=== PATIENT | female | born 1950 | race Caucasian/White ===

== ENCOUNTER 2019-03-08 15:19 | Inpatient (IN) | payer OTHER ==
[~2019-03-08] VITALS: Ht 152.4 cm; Wt 55.7 kg
[2019-03-08 17:12] LABS: HEMATOCRIT 36.4 % (37.0-47.0); HEMOGLOBIN 12.1 gm/dL (12.0-15.0); MCH 31.4 pg (26.0-34.0); MCHC 33.1 g/dL (28.0-37.0); MCV 94.7 fL (80.0-100.0); RBC 3.84 mil/uL (4.20-5.00); RDW 14.6 % (10.5-14.5); WBC 23.7 thou/uL (4.0-11.0)
[2019-03-08 17:20] LABS: CALCIUM 9.5 mg/dL (8.5-10.1); CREATININE 0.7 mg/dL (0.6-1.0); POTASSIUM 4.1 mmol/L (3.5-5.1)
[2019-03-08 17:30] LABS: TROPONIN-I 11.37 ng/mL (<0.06)
[2019-03-08 19:54] LABS: URINE BILIRUBIN NEGATIVE (Negative); URINE BLOOD NEGATIVE (Negative); URINE CLARITY CLEAR; URINE COLOR YELLOW; URINE GLUCOSE-RANDOM* NEGATIVE (Negative); URINE KETONES NEGATIVE (Negative); URINE LEUKOCYTES-REFLEX NEGATIVE (Negative); URINE NITRITE-REFLEX NEGATIVE (Negative); URINE PROTEIN (DIPSTICK) NEGATIVE (Negative); URINE SPECIFIC GRAVITY <= 1.005 (1.005-1.035); URINE UROBILINOGEN 0.2 E.U./dl (0.2-1.0)
--- NOTE | 2019-03-08 19:55 | NUR ---
PT ARRIVED TO UNIT AT APPROX 1630 BY EMS FROM [place]. PT ALERT AND ORIENTED, VSS, DENIES CHEST PAIN/SOB. O2 SATS WNL ON ROOM AIR. PT UP SBA TOLERATING WELL. PORTACATH LEFT CHEST NOTED, NOT USING FOR ACCESS D/T UNSUCCESSFUL BLOOD DRAWS. PEG TUBE IN PLACE AND NOTED- PHYSICIAN NOTIFIED, FEEDINGS ORDERED. CRITICAL TROPONIN CALLED BY LAB, RESULTS COMMUNICATED TO HOSPITALIST AND WOODEN FRAME BUILDER. NO NEW ORDERS RECEIVED. HEPARIN GTT CONTINUES PER PROTOCOL. PLAN IS FOR PT TO HAVE CATH TOMORROW MORNING. DAUGHTER AT BEDSIDE. DENYING OF NEEDS/CONCERNS.
[2019-03-08 20:15] VITALS: BP 146/79
[2019-03-09] VITALS (20 sets, daily range): BP systolic 113–137; BP diastolic 59–74
--- NOTE | 2019-03-09 03:19 | NUR ---
ASSESSMENTS CHARTED. MEDS GIVEN CHARTED. PATIENT ARRIVED TODAY WITH NSTEMI, HIGH BLOOD PRESSURE, ELEVATED TROPONIN. PATIENT ON HEPARIN DRIP AND NORMAL SALINE. C/O HEADACHE, REQUESTED MED. SPOKE WITH JONNY,CHUY ORDER RECEIVED. TROPONIN DRAWN DURING SHIFT, CRITICAL RESULTS CALLED TO ME BY LAB. PATIENT HAVING NO CHEST PAIN, PHONED DR. DURAN GAVE NO ORDERS EXCEPT THAT ANY FUTURE TROPONINS DO NOT NEED TO BE CALLED TO HIM. PATIENT NPO AT MIDNIGHT. TUBE FEEDING STOPPED AT MIDNIGHT. PEG TUBE FLUSHED THEN CAPPED. PLAN OF CARE IS TO GO TO MISSILE INSPECTOR PREFLIGHT IN AM.
--- NOTE | 2019-03-09 08:03 | HC ---
[facility] [place] [address] CONSULTATION Name: ZULEMA RED Room #: 209-P [facility] IN ..#: [id number] Admission: 03/08/19 Attend Phys: Ginny Rich Discharge: Date of : 50 Report #: [id number] THIS REPORT FOR: //name// CC: FAM unknown Ginny Rich SMILEY NUNEZ Sarah Medranoma DATE OF SERVICE: 03/08/2019 CARDIOLOGY CONSULTATION INDICATION: Chest pain. HISTORY OF PRESENT ILLNESS: This is a pleasant 68-year-old female with a history of metastatic colon cancer, hypertension, PE, GERD, presenting with chest pain. She developed substernal chest pain this morning around 8:00 a.m., nonradiating. She denies any shortness of breath. The pain persisted and she presented to the ER at [facility] for an evaluation. The initial EKG reveals sinus rhythm, nonspecific findings. The initial troponin level was 0.051. The second troponin increased to 1.860. The patient was started on heparin. There is no recent episode of fever, chills, nausea or diarrhea. She had been getting chemotherapy, but recently held due to generalized weakness. PAST MEDICAL HISTORY: Metastatic colon cancer, undergoing chemotherapy; hypertension; GERD; PE. ALLERGIES: See MAR. MEDICATIONS: At home include ____ mg daily; lisinopril daily; Xarelto 20 mg, she took last night; metoprolol. SOCIAL HISTORY: Denies tobacco use. FAMILY HISTORY: Negative for premature CAD. REVIEW OF SYSTEMS: A full 10-point review of systems performed. Only the pertinent positives and negatives are described in the HPI. PHYSICAL EXAMINATION: VITAL SIGNS: Blood pressure is 148/80, heart rate is 100 beats per minute. GENERAL APPEARANCE: This is a well-developed, well-nourished female in no acute distress. HEENT: Normocephalic, atraumatic. Oral mucosa moist. NECK: Supple. [facility] [address] [place] [address] CONSULTATION Name: ZULEMA RED Room #: 209-P [facility] IN ..#: [id number] Admission: 03/08/19 Attend Phys: Ginny Rich Discharge: Date of : 50 Report #: [id number] LUNGS: Clear to auscultation. CARDIAC: Regular rate and rhythm. S1, S2 positive. ABDOMEN: Soft, nontender. EXTREMITIES: No cyanosis, no edema. DIAGNOSTIC DATA: ECG from [place] reveals sinus rhythm. LABORATORY VALUES: Creatinine from [place] reveals creatinine of 0.4, hemoglobin is 11.8. Peak troponin is 1.86. ASSESSMENT AND PLAN: 1. Non-ST elevation myocardial infarction, stable at this time. We will start aspirin and heparin drip. I discussed with her the pros and cons of a cardiac catheterization. The patient voices understanding and we will proceed in a.m. 2. Pulmonary embolism, hold Xarelto for now. 3. Hypertension, continue on medications including the beta-arsenio. 4. Hypercholesterolemia, start statin therapy. 5. Metastatic colon cancer. <ELECTRONICALLY SIGNED> By: Luis Daniel Kennedy MD 03/09/19 0803 [id number] Luis Daniel Kennedy MD /nt
[2019-03-09 09:28] LABS: HEMOGLOBIN 10.3 gm/dL (12.0-15.0); MCH 31.4 pg (26.0-34.0); MCHC 33.1 g/dL (28.0-37.0); RBC 3.27 mil/uL (4.20-5.00); RDW 14.5 % (10.5-14.5)
[2019-03-09 09:45] LABS: CHOLESTEROL 108 mg/dL (<200); HDL CHOLESTEROL 25 mg/dL (>40); LDL CHOLESTEROL 62 mg/dL (<100); TC:HDL 4.3 Ratio (Not establshd); TRIGLYCERIDE 107 mg/dL (<150); VLDL 21 mg/dL (<40)
--- NOTE | 2019-03-09 10:00 | CATHLAB ---
[facility] [address] [email or web address] [address] INVASIVE PROCEDURE REPORT Name: ZULEMA RED Room #: 209-P [facility] IN .R.#: [id number] Admission: 03/08/19 Attend Phys: Ginny Martinez Discharge: Date of : 50 Report #: [id number] THIS REPORT FOR: //name// APPROVED REPORT Study performed: 03/09/2019 07:33:47 Patient Details Patient Status: In-Patient Room #: The patient is a 68 year-old female Event Personnel Luis Daniel Kennedy Lead Project Manager, Prema Ross RN RN, Crystal Thorpe RTR, MARIANA Scrub, Crystal Thorpe RTR, MARIANA Scrub, Aranza Arellano RTR Scrub, Campos Brantley Monitor Procedures Performed Left Heart Cath w/or w/o Coronaries [id number] [facility] Indication Non-STEMI , Chest pain Risk Factors Hypercholesterolemia, Hypertension Procedure Narrative The Right Groin^ was infiltrated with 1% Lidocaine subcutaneous anesthesia. A PINNACLE 4FR Sheath #[id number] sheath was inserted into the RFA^. Coronary angiography was performed using coronary diagnostic catheters. The right coronary system was accessed and visualized with a JR4 catheter. The left coronary system was accessed and visualized with a JL4 catheter. The left ventricle was accessed and visualized with a PIGTAIL catheter. Left ventricular/Aortic Valve gradient assessed via catheter pullback. Left ventriculogram was performed in 30 degree projection. Hemostasis was obtained with manual pressure following sheath removal without any complications. The patient tolerated the procedure well and there were no complications associated with the procedure. There was no hematoma. Intraoperative Conscious Sedation Sedation start time: 8.08 Case end Time: 8.31 Fentanyl 25 mcg Versed 1 mg [facility] [address] [place] [address] INVASIVE PROCEDURE REPORT Name: ZULEMA RED Room #: 209-P [facility] IN [facility].#: [id number] Admission: 03/08/19 Attend Phys: Ginny Martinez Discharge: Date of : 50 Report #: [id number] Fluoro Time: 183.00 minutes Dose: DAP 1414.00 cGycm2 183 mGy Contrast Type and Amount: Omnipaque 75 ml Coronary Angiography The patient's coronary anatomy is co- dominant. Diagnostic Cath Left Main This is a short segment, patent with no flow-limiting lesions. LAD This is a moderate size caliber vessel, traversing the anterior wall and wrapping around the apex. This vessel is patent, with mild disease in the mid segment, 20%. Diagonal 1 This is a small to moderate size caliber vessel, patent with no flow-limiting lesions. Diagonal 2 This is a small to moderate size caliber vessel, patent with no flow-limiting lesions. Circumflex This is a codominant vessel, patent with no flow-limiting lesions. OM1 This is a moderate size caliber vessel, supplying several branches as it travels the lateral wall and terminates in the mid to distal inferior wall. There is a mild stenosis in the proximal segment, 20%. OM2 This is a small to moderate size caliber vessel, patent with no flow-limiting lesions. OM3 This is a small to moderate size caliber vessel, patent with no flow-limiting lesions. Right Coronary This is a small to moderate size caliber vessel, patent with no flow-limiting lesions. R PDA This is a small to moderate size caliber vessel, patent with no flow-limiting lesions. Left Ventriculography The left ventricle is normal in size with normal contractility. The left ventricular ejection fraction is estimated to be 50-55%. There is hypokinesis of the distal inferior wall. Hemodynamics The aortic pressure is 136/72 mmHg with a mean of 98 mmHg. The left ventricular pressure is 139/8 mmHg with a mean of mmHg. The left ventricular end diastolic pressure is 14 mmHg. There was no gradient across the aortic valve upon pullback. Pullback from the left ventricle to the aorta revealed no gradient across the aortic valve. Conclusion [facility] [address] [place] [address] INVASIVE PROCEDURE REPORT Name: ZULEMA RED Room #: 209-P [facility] IN M.R.#: [id number] Admission: 03/08/19 Attend Phys: Ginny Martinez Discharge: Date of : 50 Report #: [id number] 1. There is mild, nonobstructive disease in the mid LAD and proximal OM1. 2. Codominant left circumflex system. 3. Normal LV function, with hypokinesis of the distal inferior wall. 4. Recommend aggressive risk factor management. <ELECTRONICALLY SIGNED> By: Luis Daniel Kennedy MD 03/09/19 1000 1000 1000 Luis Daniel Kennedy MD /INF
--- NOTE | 2019-03-09 10:36 | 2DMMODE ---
[facility] [address] [place] [address] 2 D/M-MODE ECHOCARDIOGRAM Name: NEDAZULEMA Mast Room #: 209-P [facility] IN .R.#: [id number] Admission: 03/08/19 Attend Phys: Ginny Martinez Discharge: Date of : 50 Report #: [id number] THIS REPORT FOR: //name// APPROVED REPORT Study performed: 03/09/2019 09:40:47 EXAM: Comprehensive 2D, Doppler, and color-flow Echocardiogram Patient Location: Bedside Room #: 209 Status: routine BSA: 1.51 HR: 85 bpm BP: 123/71 mmHg Rhythm: NSR Other Information Study Quality: Good/patient on bed rest Indications Chest pain; status post heart cath-no intervention. Mild CAD 2D Dimensions RVDd: 29.55 mm IVSd: 10.29 (7-11mm) LVOT Diam: 18.92 (18-24mm) LVDd: 41.91 mm PWd: 8.56 (7-11mm) Ascending Ao: 28.59 (22-36mm) LVDs: 28.01 (25-40mm) Aortic Root: 29.25 mm Volumes Left Atrial Volume (Systole) Single Plane 4CH: 38.09 mL Single Plane 2CH: 40.35 mL LA ESV Index: 30.00 mL/m2 Aortic Valve AoV Peak Nicolás.: 1.95 m/s AO Peak Gr.: 15.18 mmHg LVOT Max P.37 mmHg AO Mean Gr.: 7.61 mmHg AO V2 Mean: 1.30 m/s LVOT Max V: 1.16 m/s AO V2 VTI: 36.42 cm DANIELA Vmax: 1.67 cm2 Mitral Valve E/A Ratio: 0.8 [facility] [address] [place] [address] 2 D/M-MODE ECHOCARDIOGRAM Name: NEDAZULEMA Mast Room #: 209-[facility] IN [facility].#: [id number] Admission: 03/08/19 Attend Phys: Ginny Martinez Discharge: Date of : 50 Report #: [id number] MV Decel. Time: 143.79 ms MV E Max Nicolás.: 0.62 m/s MV A Nicolás.: 0.77 m/s MV PHT: 41.70 ms IVRT: 89.97 ms Pulmonary Valve PV Peak Nicolás.: 0.83 m/s PV Peak Gr.: 2.73 mmHg Pulmonary Vein P Vein S: 0.44 m/s P Vein D: 0.30 m/s P Vein S/D Ratio: 1.47 Tricuspid Valve RAP Estimate: 5.00 mmHg Left Ventricle The left ventricle is normal size. There is normal LV segmental wall motion. There is normal left ventricular wall thickness. Left ventricular systolic function is normal. LVEF is 55-60%. Mild diastolic dysfunction is present (impaired relaxation pattern). Right Ventricle The right ventricle is normal size. The right ventricular systolic function is normal. Atria The left atrium size is normal. The right atrium size is normal. Aortic Valve The aortic valve is normal in structure. Leaflets are mildly thickened and calcified with adequate excursion. No aortic regurgitation is present. There is no aortic valvular stenosis. Mitral Valve The mitral valve is normal in structure. There is no mitral valve regurgitation noted. No evidence of mitral valve stenosis. Tricuspid Valve The tricuspid valve is normal in structure. There is no tricuspid valve regurgitation noted. Unable to assess PA pressure. Pulmonic Valve [facility] [address] [place] [address] 2 D/M-MODE ECHOCARDIOGRAM Name: ZULEMA RED Room #: 209-P [facility] IN ..#: [id number] Admission: 03/08/19 Attend Phys: Ginny Martinez Discharge: Date of : 50 Report #: [id number] The pulmonary valve is normal in structure. There is no pulmonic valvular regurgitation. Great Vessels The aortic root is normal in size. The ascending aorta is normal in size. IVC is normal in size and collapses >50% with inspiration. Pericardium There is no pericardial effusion. <Conclusion> The left ventricle is normal size. There is normal left ventricular wall thickness. Left ventricular systolic function is normal. Mild diastolic dysfunction is present (impaired relaxation pattern). The right ventricle is normal size. The left atrium size is normal. The aortic valve is normal in structure. Leaflets are mildly thickened and calcified with adequate excursion. There is no mitral valve regurgitation noted. There is no tricuspid valve regurgitation noted. <ELECTRONICALLY SIGNED> By: Luis Daniel Kennedy MD 03/09/19 1036 1036 1036 Luis Daniel Kennedy MD /INF
--- NOTE | 2019-03-09 14:39 | NUR ---
PT ADMITTED RELATED TO CHEST PAIN. CM REVIEWED CHART AND SPOKE WITH CARE TEAM. CM MET WITH PT AND SPOUSE AT BEDSIDE THIS DAY. PT IS A&O X4. CM ROLE INTRODUCED. PT INDICATED SHE AND SPOUSE RESIDE IN A HOUSE WITH 3 STEPS TO ENTER AND A FULL FLIGHT OF STEPS TO BASEMENT. PT INDICATED SHE HAD BEEN INDEPENDENT WITH GAIT AND ADLS GENERAL DENTIST. PT INDICATED SHE NO DME HX. PT INDICATED SHE HAD USED [facility] IN THE PAST. PT'S PCP IS DR. DORINA ABRAHAM. PT AND OT EVALS WERE ORDERED. SPOUSE INQUIRED ABOUT A FWW FOR HOME USE HE INDICATED THAT PT HAS SOME TROUBLE WITH AMBULATION AT TIMES. CM ORDERED FWW THROUGH [facility]. REFERRAL TO BE SENT TO [facility] FOR POSSIBLE PT AND OT NEEDS UPON ANTICIPATED DC TOMORROW. CM TO FOLLOW INDICATED WITH DC PLANNING.
--- NOTE | 2019-03-09 14:43 | NUR ---
Nutrition: REC adjustment from usual tube feeding regimen to better meet needs. REC Jevity 1.5 to run at 70 mL/hr x 14 hrs with 175 mL H20 flush q 6 hrs. REC Speech eval due to comments related to dysphagia, aspiration concern and pt not eating much of anything to speak of orally
--- NOTE | 2019-03-09 16:06 | NUR ---
PT WAS ISSUED A FWW FOR HOME USE BY [facility]. SHOULD PT BE MEDICALLY STABLE TO DISCHARGE HOME OVER THE WEEKEND AND NEED SERVICES CONTACT [facility] AT PHONE: FAX FINAL ORDERS TO .
--- NOTE | 2019-03-09 16:17 | NUR ---
FAXED REFERRAL TO [facility] SPOKE WITH OCTAVIO IN INTAKE SHE RECEIVED REFERRAL AND WILL REVIEW. SHE IS GOING TO RUN INSURANCE BENEFITS. DP TO FOLLOW.
[2019-03-09 17:02] LABS: CALCIUM 8.9 mg/dL (8.5-10.1); CREATININE 0.6 mg/dL (0.6-1.0)
--- NOTE | 2019-03-09 17:32 | NUR ---
ASSUMED CARE 0700. HEART CRAYON GRADER THIS MORNING WITH NO INTERVENTIONS. POST CARDIAC CATH WITH NO INTERVENTIONS IN PLACE. RIGHT GROIN SITE REMAIN CLEAN DRY AND INTACT WITH VS WNL. PT HAS POOR INTAKE AND VOICED SHE FEELS CHOKED UP WHEN SHE EATS AND HAS VOMITED, NO VOMITING NOTED AT THIS TIME. PATIENT AND FAMILY MADE AWARE OF ORDER FOR ST TO EVALUATE TOMORROW. REMAINS ALERT X4, DROWSY YET EASILY AROUSES. UP WITH STAND BY TO BATHROOM. NUTRITION VIA PEG TO RUN AT NIGHT. CALL LIGHT IN REACH. CONTINUE TO MONITOR
[2019-03-10 00:42] VITALS: BP 128/65
[2019-03-10 03:30] LABS: HEMATOCRIT 29.6 % (37.0-47.0); HEMOGLOBIN 9.7 gm/dL (12.0-15.0); MCH 31.2 pg (26.0-34.0); MCHC 32.8 g/dL (28.0-37.0); MCV 95.2 fL (80.0-100.0); RBC 3.11 mil/uL (4.20-5.00); RDW 14.9 % (10.5-14.5); WBC 15.9 thou/uL (4.0-11.0)
[2019-03-10 03:46] LABS: CALCIUM 8.1 mg/dL (8.5-10.1); CREATININE 0.5 mg/dL (0.6-1.0)
[2019-03-10 03:49] LABS: TROPONIN-I 2.66 ng/mL (<0.06)
[2019-03-10 04:45] VITALS: BP 128/68
[2019-03-10 07:30] VITALS: BP 137/65
--- NOTE | 2019-03-10 07:58 | NUR ---
ASSUME CARE 1900. PT/VITALS STABLE. DENIES ANY PAIN. SR ON MONITOR ASSESSMENT CHARTED. PROGRESSING WELL WITH POC. RIGHT GROIN SITE CDI. ADEQUATE REST NOTED THROUGH THE NIGHT. FAMILY IN WITH PATIENT. TOLERATES TUBE FEEDING WELL. YELLOW DISCOLORATION/MILD BLOODY DRAINAGE NOTED AT SITE OF PEG TUBE. CLEANED WITH SALINE AND BETABINE WITH GAUZE PLACED OVER. WILL CONTINUE TO MONITOR AND FOLLOW WITH POC
[2019-03-10] MEDS ORDERED: NITROGLYCERIN0.4 MG SUBLING (09:53)
[2019-03-10] MEDS ORDERED: METOPROLOL SUCC50 MG PO (09:53)
[2019-03-10] MEDS ORDERED: LIPITOR40 MG PO (09:53)
[2019-03-10] MEDS ORDERED: XARELTO20 MG PO (09:53)
[2019-03-10] MEDS ORDERED: ASPIR 8181 MG PO (09:53)
[2019-03-10] MEDS ORDERED: PROTONIX 20 MG20 M1 PO (09:53)
[2019-03-10 09:59] VITALS: BP 137/66
[2019-03-10 10:35] VITALS: BP 137/66
[2019-03-10 11:08] VITALS: BP 137/66
--- NOTE | 2019-03-12 12:58 | EKG ---
[address] [place] [address] ELECTROCARDIOGRAM REPORT Name: ZULEMA RED Room #: 209-[facility] IN M.R.#: [id number] Admission: 03/08/19 Attend Phys: Ginny Rich Discharge: 03/10/19 Date of : 50 Report #: [id number] THIS REPORT FOR: //name// [facility] Test Date: 2019-03-08 Test Time: 17:42:12 Pat Name: ZULEMA RED Department: Room: 209 P Gender: F Moderate Needs Teacher: Pro NG : 1950 Requested By: Sarah Rodríguez Order Number: [id number] MD: Kyree Alcocer Measurements Intervals [place] Rate: 83 P: 43 NM: 167 QRS: -6 QRSD: 80 T: 6 QT: 350 QTc: 412 Interpretive Statements Sinus rhythm Probable left atrial enlargement No previous ECG available for comparison Electronically Signed On 03-12-2019 12:58:20 CARPENTER REPAIRER by Kyree Alcocer [email or web address] <ELECTRONICALLY SIGNED> By: Kyree Alcocer MD 03/12/19 1258 41 41 Kyree Alcocer MD /AILYN
--- NOTE | 2019-03-12 12:59 | EKG ---
[address] [place] [address] ELECTROCARDIOGRAM REPORT Name: ZULEMA RED Room #: 209-[facility] IN M.R.#: [id number] Admission: 03/08/19 Attend Phys: Ginny Rich Discharge: 03/10/19 Date of : 50 Report #: [id number] THIS REPORT FOR: //name// [facility] Test Date: 2019-03-08 Test Time: 20:16:26 Pat Name: ZULEMA RED Department: Room: 209 P Gender: F Park Activities Coordinator: Pro NG : 1950 Requested By: Sarah Rodríguez Order Number: [id number] MD: Kyree Alcocer Measurements Intervals [place] Rate: 97 P: 47 CO: 170 QRS: -14 QRSD: 81 T: 1 QT: 326 QTc: 414 Interpretive Statements Sinus rhythm RSR' in V1 or V2, probably normal variant Left ventricular hypertrophy No previous ECG available for comparison Electronically Signed On 03-12-2019 12:59:09 HVAC MAINTENANCE TECHNICIAN by Kyree Alcocer [email or web address] <ELECTRONICALLY SIGNED> By: Kyree Alcocer MD 03/12/19 1259 15 15 Kyree Alcocer MD /EPI
== END 2019-03-10 11:27 | disposition home health service (06) | DRG 281 ==
LOC: 2N 15:19
PROVIDERS: Internal Medicine Cardiovascular Disease; ADMIT Internal Medicine
PROC: B2151ZZ Fluoroscopy of Left Heart using Low Osmolar Contrast (ICD-10-PCS; principal; 2019-03-09)
PROC: 4A023N7 Measurement of Cardiac Sampling and Pressure, Left Heart, Percutaneous Approach (ICD-10-PCS; principal; 2019-03-09)
PROC: B2111ZZ Fluoroscopy of Multiple Coronary Arteries using Low Osmolar Contrast (ICD-10-PCS; principal; 2019-03-09)
DX: I21.4 Non-ST elevation (NSTEMI) myocardial infarction (principal); C18.9 Malignant neoplasm of colon, unspecified; C78.00 Secondary malignant neoplasm of unspecified lung; C78.7 Secondary malignant neoplasm of liver and intrahepatic bile duct; I10 Essential (primary) hypertension; K21.9 Gastro-esophageal reflux disease without esophagitis; E78.00 Pure hypercholesterolemia, unspecified; D72.829 Elevated white blood cell count, unspecified; R53.81 Other malaise; Z88.2 Allergy status to sulfonamides; Z86.711 Personal history of pulmonary embolism; Z79.01 Long term (current) use of anticoagulants; Z90.49 Acquired absence of other specified parts of digestive tract; Z90.710 Acquired absence of both cervix and uterus; Z82.49 Family history of ischemic heart disease and other diseases of the circulatory system; Z79.899 Other long term (current) drug therapy; Z68.24 Body mass index [BMI] 24.0-24.9, adult
CPT/HCPCS: 10081